=== PATIENT | female | born 1965 | race Caucasian/White ===

== ENCOUNTER 2018-05-10 08:34 | Day surgery (SDC) | payer OTHER ==
[2018-05-10] MEDS: ROPIVACAINE 0.5 % 30 ML VIAL (11:56)
[2018-05-10] MEDS: POVIDONE IODINE 10% 28.4 GM OINT (11:56)
[2018-05-10] MEDS ORDERED: LIDOCAINE 2% (SDV) 5 ML INJ (12:12)
[2018-05-10] MEDS ORDERED: ROPIVACAINE 0.5 % 30 ML VIAL (12:12)
[2018-05-10] MEDS ORDERED: PROPOFOL 20 ML (12:12)
[2018-05-10] MEDS ORDERED: GLYCOPYRROLATE 0.4 MG INJ ×2 (12:12→13:34)
[2018-05-10] MEDS ORDERED: ROCURONIUM 50 MG INJ ×2 (12:12→13:52)
[2018-05-10] MEDS ORDERED: NEOSTIGMINE 3 MG/3 ML SYRINGE ×2 (12:12→13:34)
[2018-05-10] MEDS ORDERED: SUCCINYLCHOLINE CHLORIDE 100 MG/5 ML SYG IV (12:12)
[2018-05-10] MEDS ORDERED: CEFAZOLIN 1 GM INJ ×2 (12:42→13:34)
[2018-05-10] MEDS ORDERED: METOCLOPRAMIDE 10 MG INJ (12:42)
[2018-05-10] MEDS ORDERED: ONDANSETRON 4 MG INJ (12:42)
[2018-05-10] MEDS ORDERED: DIPHENHYDRAMINE 50 MG INJ IV (14:30)
[2018-05-10] MEDS ORDERED: METOCLOPRAMIDE 10 MG INJ IV (14:30)
[2018-05-10] MEDS ORDERED: HYDROmorphONE 1 MG/5 ML IV SYRINGE IV ×3 (14:30)
[2018-05-10] MEDS ORDERED: EPHEDrine SULFATE 50 MG/5 ML SYG IV (14:30)
[2018-05-10] MEDS ORDERED: MEPERIDINE 25 MG INJ IV (14:30)
[2018-05-10] MEDS ORDERED: hydrALAzine 20 MG INJ IV (14:30)
[2018-05-10] MEDS ORDERED: LABETALOL HCL 20MG INJ IV (14:30)
[2018-05-10] MEDS ORDERED: OXYCODONE/ACETAMINOPHEN (5/325) TAB PO ×4 (14:30→15:00)
[2018-05-10] MEDS ORDERED: MIDAZOLAM 1 MG/ML 2 ML INJ IV (14:30)
[2018-05-10] MEDS ORDERED: SOD CHLORIDE 0.9% 1,000 ML IV (14:35)
[2018-05-10] MEDS ORDERED: morphine 2 MG INJ IV (15:00)
[2018-05-10] MEDS ORDERED: ONDANSETRON 4 MG INJ IV (15:00)
[2018-05-10] MEDS: ONDANSETRON 4 MG INJ IV (15:05)
[2018-05-10] MEDS: CEFAZOLIN 1 GM/50 ML (PMX) 50 ML IVPB (15:05)
== END 2018-05-10 18:10 | disposition home or self-care (01) ==
LOC: SDS 08:34
DX: M19.072 Primary osteoarthritis, left ankle and foot (principal); M65.872 Other synovitis and tenosynovitis, left ankle and foot; E78.5 Hyperlipidemia, unspecified
CPT/HCPCS: 28750; 73660; 84703